=== PATIENT | female | born 1985 | race Caucasian/White ===

== ENCOUNTER 2017-10-01 08:20 | Emergency (ER) | payer OTHER ==
[~2017-10-01] VITALS: Ht 167.6 cm; Wt 61.5 kg
[2017-10-01 08:20] VITALS: BP 128/77; PULSE 86; RESP 16; TEMP 98.2; O2SAT 100
[2017-10-01] MEDS ORDERED: IBUPROFEN 800 MG TAB PO ONE (08:45)
--- NOTE | 2017-10-01 09:17 | RADRPT ---
EXAM DATE/TIME: 10/01/2017 09:10 [place] COMPARISON: No previous studies available for comparison. INDICATIONS : Right shoulder pain, fall. MEDICAL HISTORY : None. SURGICAL HISTORY : None. ENCOUNTER: Initial ACUITY: 1 day PAIN SCORE: 8/10 LOCATION: Right proximal shoulder FINDINGS: Multiple view examination of the right shoulder demonstrates no evidence of fracture or dislocation. The glenohumeral and acromioclavicular joints are maintained. There is normal range of motion betwe en internal and external rotation. Bony mineralization is normal. CONCLUSION: 1. No acute bony abnormality is identified. Tyrone Harkins MD on October 01, 2017 at 9:14 Board Certified Radiologist. This report was verified electronically.
[2017-10-01] MEDS ORDERED: IBUP1TAB7 PO (09:24)
--- NOTE | 2017-10-01 09:24 | PD ---
HPI Chief Complaint: Injury Time Seen by Provider: 08:43 Travel History International Travel<30 days: No Contact w/Intl Traveler<30days: No Traveled to known affect area: No History of Present Illness HPI 32-year-old female presents to the emergency department with complaint of an injury to her right shoulder yesterday while wrestling with the family member. Pain radiates to her neck, fingers, and shoulder blade. Denies fever, vomiting. Denies paresthesias, loss of sensation, decreased strength to the affected extremity. Reports decreased range of motion at the shoulder secondary to pain. Rates pain 10/10. Describes it as a throbbing and shooting sensation. Has tried taking Advil for symptom management. No known allergies. No primary care provider. History of seizures and does not take medications. Has no other medical complaints. No other modifying factors or associated signs and symptoms. PFSH Past Medical History Diminished Hearing: No ?: Not LMP: 09/02/16 Dilation and Curettage (D&C): Yes Past Surgical History Section: Yes Tonsillectomy: Yes Social History Alcohol Use: Yes (OCC) Tobacco Use: Yes Substance Use: No Allergies-Medications (Allergen,Severity, Reaction): Coded Allergies: No Known Allergies (Unverified , 10/01/17) Reported Meds & Prescriptions Reported Meds & Active Scripts Active Ibuprofen 800 Mg Tab 800 Mg PO Q6HR PRN Review of Systems Except as stated in HPI: all other systems reviewed are Neg Physical Exam Narrative GENERAL: Well-nourished, well-developed female patient, in no acute distress SKIN: Warm and dry. HEAD: Atraumatic. Normocephalic. EYES: Pupils equal and round. No scleral icterus. No injection or drainage. ENT: Mucosa pink and moist. Airway patent. NECK: Supple. Trachea midline. CARDIOVASCULAR: Regular rate. RESPIRATORY: No accessory muscle use. GASTROINTESTINAL: Flat. MUSCULOSKELETAL: No obvious deformities. No clubbing. No cyanosis. No edema. Right shoulder with limited range of motion; less than 45 abduction; [-] shoulder with no obvious deformities. 5/5 strength. Right upper extremity supple and non-tense. 3+ radial pulse and sensory intact. NEUROLOGICAL: Awake and alert. Oriented 3. No obvious cranial nerve deficits. Motor grossly within normal limits. Normal speech. PSYCHIATRIC: Appropriate mood and affect; insight and judgment normal. Data Data Last Documented VS Vital Signs Date Time Temp Pulse Resp B/P (MAP) Pulse Ox O2 Delivery O2 Flow Rate FiO2 10/01/17 08:20 98.2 86 16 128/77 (94) 100 Room Air Orders Orders Shoulder, Complete (>2vws) (10/01/17 08:43) Ibuprofen (Motrin) (10/01/17 08:45) Ed Discharge Order (10/01/17 09:25) Sling Cradle Arm (10/01/17 ) MDM Medical Decision Making Medical Screen Exam Complete: Yes Emergency Medical Condition: Yes Medical Record Reviewed: Yes Differential Diagnosis Rotator cuff tear, joint separation, shoulder fracture, shoulder strain, shoulder injury Narrative Course 32-year-old female with right shoulder injury. Ibuprofen and right shoulder x- ray ordered. Patient has ice pack in place. 09: Right shoulder x-ray concluded: No acute bony abnormality is identified. Patient provided a copy of the x-ray report. Arm sling provided for support. Instructed patient to follow-up with orthopedics if symptoms persist greater than 7-10 days. Ibuprofen and Robaxin prescribed for home. Instructed patient to follow up with primary care provider. Patient verbalizes understanding and agreement with treatment plan. Patient is medically cleared and stable for discharge. Discussed reasons to return to the emergency department. Patient agrees with treatment plan. The patients vital signs are stable and the patient is stable for outpatient follow-up and treatment. Patient discharged home, stable and in no acute distress. Diagnosis Primary Impression: Right shoulder injury Qualified Codes: S49.91XA - Unspecified injury of right shoulder and upper arm , initial encounter Referrals: Orthopaedic Surgeon Primary Care Physician Patient Instructions: General Instructions, Shoulder Sprain (ED) Additional Instructions: Tylenol or ibuprofen as needed and as directed to reduce pain and inflammation Rest, ice, and compress extremity to decrease pain and inflammation Arm sling for support Avoid aggravating activity; increase activity as tolerated Follow-up with primary care provider Follow-up with orthopedics as needed Return to the emergency department immediately with worsening symptoms Med/Other Pt SpecificInfo: Prescription(s) given Scripts Methocarbamol (Robaxin) 500 Mg Tab 500 MG PO QID Y for MUSCLE SPASM, #30 TAB 0 Refills Prov: Martha Alaniz 10/01/17 Ibuprofen (Ibuprofen) 800 Mg Tab 800 MG PO Q6HR Y for PAIN, #30 TAB 0 Refills Prov: Martha Alaniz 10/01/17 Disposition: 01 DISCHARGE HOME Condition: Stable Martha Alaniz Oct 01, 2017 09:24
[2017-10-01] MEDS ORDERED: ROBA500T PO (09:31)
== END 2017-10-01 09:46 | disposition home or self-care (01) ==
LOC: NEPD 08:20
DX: S49.91XA Unspecified injury of right shoulder and upper arm, initial encounter (principal); R56.9 Unspecified convulsions; Z72.0 Tobacco use; Y93.72 Activity, wrestling
CPT/HCPCS: 73030; 99283

== ENCOUNTER 2017-10-04 22:49 | Emergency (ER) | payer OTHER ==
[~2017-10-04 22:49] MED LIST: IBUP1TAB7 PO; ROBA500T PO
== END 2017-10-04 23:33 | disposition left against medical advice (07) ==
LOC: NED 22:49
DX: M25.511 Pain in right shoulder (principal)
CPT/HCPCS: 99281

== ENCOUNTER 2017-10-06 04:04 | Emergency (ER) | payer OTHER ==
[~2017-10-06] VITALS: Ht 172.7 cm; Wt 57.0 kg
[2017-10-06 04:07] VITALS: BP 109/61; PULSE 73; RESP 18; TEMP 98.2; O2SAT 99
[2017-10-06] MEDS ORDERED: LIDOCAINE HCL 5% PATCH T-DERMAL ONE (04:30)
[2017-10-06] MEDS ORDERED: DEXAMETHASONE SOD PHOS 20 MG/5 ML VIAL IM ONE (04:30)
[2017-10-06] MEDS ORDERED: ORPHENADRINE INJ 60 MG/2 ML AMP IM ONE (04:30)
[2017-10-06] MEDS ORDERED: KETOROLAC TROMETHAMINE 60 MG/2 ML (IM) VIAL IM ONE (04:30)
--- NOTE | 2017-10-06 04:32 | PD ---
HPI Chief Complaint: Injury Time Seen by Provider: 04:17 Travel History International Travel<30 days: No Contact w/Intl Traveler<30days: No Traveled to known affect area: No History of Present Illness HPI Patient is a 32-year-old female presenting to the emergency department for evaluation of right shoulder pain. Patient injured her shoulder playing with her son on the , she presented to the ER on the . She states after that she went to a chiropractor who adjusted her neck. Patient states that she has 10 out of 10 pain that radiates from the neck down to her shoulder. She denies any specific neck pain or injury related to the chiropractor. She states the pain is been consistent since she initially injured it. Symptom onset was fairly sudden, symptom severity is moderate, there are no alleviating factors. Pain is exacerbated with movement. 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 She states she has a weird feeling running down her arm. PFSH Past Medical History Medical History: Denies Significant Hx Diminished Hearing: No Tetanus Vaccination: < 5 Years Influenza Vaccination: No ?: Not LMP: 09/07/2017 Dilation and Curettage (D&C): Yes Past Surgical History Section: Yes Tonsillectomy: Yes Social History Alcohol Use: Yes (OCC) Tobacco Use: No Substance Use: No Allergies-Medications (Allergen,Severity, Reaction): Coded Allergies: No Known Allergies (Unverified , 10/06/17) Reported Meds & Prescriptions Reported Meds & Active Scripts Active Robaxin (Methocarbamol) 500 Mg Tab 500 Mg PO QID PRN Ibuprofen 800 Mg Tab 800 Mg PO Q6HR PRN Review of Systems Except as stated in HPI: all other systems reviewed are Neg Musculoskeletal: Positive: Myalgias, Cramping, Pain Physical Exam Narrative GENERAL: Well-developed, well-nourished, alert female. Presenting in no acute distress, appears uncomfortable. SKIN: Warm and dry. HEAD: Atraumatic. Normocephalic. EYES: Pupils equal and round. No scleral icterus. No injection or drainage. ENT: No nasal bleeding or discharge. Mucous membranes pink and moist. NECK: Trachea midline. No JVD. CARDIOVASCULAR: Regular rate and rhythm. RESPIRATORY: No accessory muscle use. Clear to auscultation. Breath sounds equal bilaterally. GASTROINTESTINAL: Abdomen soft, non-tender, nondistended. Hepatic and splenic margins not palpable. MUSCULOSKELETAL: Extremities without clubbing, cyanosis, or edema. No obvious deformities. Tenderness to palpation and right neck musculature and lateral aspect of right upper arm. 2+ radial pulse, brisk less than 3 second capillary refill. NEUROLOGICAL: Awake and alert. No obvious cranial nerve deficits. Motor grossly within normal limits. Five out of 5 muscle strength in the arms and legs. Normal speech. PSYCHIATRIC: Appropriate mood and affect; insight and judgment normal. Data Data Last Documented VS Vital Signs Date Time Temp Pulse Resp B/P (MAP) Pulse Ox O2 Delivery O2 Flow Rate FiO2 10/06/17 04:07 98.2 73 18 109/61 (77) 99 Orders Orders Ketorolac Inj (Toradol Inj) (10/06/17 04:30) Orphenadrine Inj (Norflex Inj) (10/06/17 04:30) Dexamethasone Inj (Decadron Inj) (10/06/17 04:30) Lidocaine 5% Patch.12 Hr (Lidoderm 5% Pa (10/06/17 04:30) MDM Medical Decision Making Medical Screen Exam Complete: Yes Emergency Medical Condition: Yes Medical Record Reviewed: Yes Interpretation(s) Vital Signs Date Time Temp Pulse Resp B/P (MAP) Pulse Ox O2 Delivery O2 Flow Rate FiO2 10/06/17 04:07 98.2 73 18 109/61 (77) 99 Differential Diagnosis Muscle strain versus muscle spasm versus tendinitis versus radiculopathy versus other Narrative Course Patient is a 32-year-old female presenting with 6 days of right shoulder pain after injuring it playing with her son. Patient is neurovascularly intact, there are no focal deficits noted on exam. Patient had negative imaging on the . Patient will be given Toradol, Norflex, dexamethasone and the Lidoderm patch at this time. Will reassess. Patient seen ambulating in the emergency department, she is comfortable appearing, pain seems to be resolving. Patient reports pain is improved somewhat. Patient is encouraged follow-up with primary doctor, continue range of motion exercises, apply heat. She is encouraged to return to emergency department for any new worsening symptoms. Patient stable for discharge Diagnosis Primary Impression: Right shoulder tendinitis Referrals: Primary Care Physician 1 week Patient Instructions: General Instructions, Shoulder Sprain (ED), Tendinitis ( ED) Additional Instructions: Apply warm heat to the affected area, continue gentle range of motion exercises , avoid exacerbating activities, avoid bed rest Take medications as directed Follow-up with a primary doctor or at this area clinic Return to emergency department for any new or worsening symptoms Stop taking ibuprofen and Robaxin, start ketorolac and Flexeril. Med/Other Pt SpecificInfo: Prescription(s) given Scripts Ketorolac (Ketorolac) 10 Mg Tab 10 MG PO TID Y for Pain Management for 10 Days, TAB 0 Refills Prov: Beba Bryan 10/06/17 Lidocaine (Lidoderm) 5 % Adh..patch 1 PATCH TOPICAL DAILY Y for PAIN SCALE 1 TO 10 for 10 Days Prov: Beba Bryan 10/06/17 Prednisone (Prednisone) 50 Mg Tab 50 MG PO DAILY for 5 Days, #5 TAB 0 Refills Prov: Beba Bryan 10/06/17 Cyclobenzaprine (Flexeril) 10 Mg Tab 10 MG PO TID Y for MUSCLE SPASM, #30 TAB 0 Refills Prov: Beba Bryan 10/06/17 Disposition: 01 DISCHARGE HOME Condition: Stable Beba Bryan Oct 06, 2017 04:32
[2017-10-06] MEDS ORDERED: PRED50 PO (05:08)
[2017-10-06] MEDS ORDERED: LIDO1ADH4 TOPICAL (05:08)
[2017-10-06] MEDS ORDERED: CYCL10TA PO (05:08)
[2017-10-06] MEDS ORDERED: KETO10 PO (05:08)
== END 2017-10-06 05:21 | disposition home or self-care (01) ==
LOC: NEPD 04:04
DX: M75.91 Shoulder lesion, unspecified, right shoulder (principal); M79.1 Myalgia; R25.2 Cramp and spasm
CPT/HCPCS: 96372; 99284; J1100; J1885; J2360